=== PATIENT | female | born 1980 | race Caucasian/White ===

== ENCOUNTER 2020-11-27 18:27 | Emergency (ER) | payer OTHER ==
[~2020-11-27] VITALS: Ht 177.8 cm; Wt 129.7 kg
[2020-11-27] MEDS ORDERED: NAPROSYN500 MG PO (20:12)
[2020-11-27 20:26] VITALS: BP 131/98
== END 2020-11-27 20:26 | disposition home or self-care (01) ==
LOC: FSED 19:20
DX: S93.402A Sprain of unspecified ligament of left ankle, initial encounter (principal); X50.1XXA Overexertion from prolonged static or awkward postures, initial encounter; Y93.01 Activity, walking, marching and hiking; Y92.480 Sidewalk as the place of occurrence of the external cause; I10 Essential (primary) hypertension; E03.9 Hypothyroidism, unspecified
CPT/HCPCS: 99283

== ENCOUNTER 2024-09-04 20:07 | Emergency (ER) | payer OTHER ==
[~2024-09-04] VITALS: Ht 177.8 cm; Wt 129.7 kg
[~2024-09-04 20:07] MED LIST: NAPROSYN500 MG PO
[2024-09-04 20:32] VITALS: PULSE 77; RESP 18; TEMP 98
[2024-09-04] MEDS: FAMOTIDINE 20 MG/2 ML VIAL IV STA (20:50)
[2024-09-04] MEDS: SODIUM CHLORIDE 0.9% 1000ML 1,000 ML IV STA (20:50)
[2024-09-04] MEDS: ONDANSETRON HCL INJ 2MG/ML 2ML 2 MG/ML VIAL IV STA ×2 (20:51→23:47)
[2024-09-04] MEDS ORDERED: IOPAMIDOL 370 MG/ML 100 ML INFUS..BTL INJ ONE (21:01)
[2024-09-04] MEDS ORDERED: PEPCID AC10 MG PO (23:13)
[2024-09-04] MEDS ORDERED: ONDANSETRON ODT4 MG PO (23:13)
[2024-09-04 23:47] VITALS: BP 129/76; PULSE 65; RESP 15; TEMP 98.3; O2SAT 98
== END 2024-09-04 23:25 | disposition home or self-care (01) ==
LOC: FSED 20:10
DX: R10.33 Periumbilical pain (principal); R11.2 Nausea with vomiting, unspecified; K76.0 Fatty (change of) liver, not elsewhere classified; R16.0 Hepatomegaly, not elsewhere classified; R91.1 Solitary pulmonary nodule; I10 Essential (primary) hypertension; E03.9 Hypothyroidism, unspecified
CPT/HCPCS: 74177; 80048; 80076; 81003; 85025; 99284; J2405; J7030; Q9967